=== PATIENT | female | born 1955 | race Caucasian/White ===

== ENCOUNTER 2017-09-29 21:52 | Emergency (ER) | payer OTHER ==
[~2017-09-29] VITALS: Ht 162.6 cm; Wt 68.0 kg
[~2017-09-29 21:52] MED LIST: ORE25 PO
[2017-09-29 21:55] VITALS: BP 177/88
[2017-09-29 22:02] VITALS: BP 177/88
--- NOTE | 2017-09-29 22:02 | NUR ---
TO CASTRO, A/W BED, EKG NSR, VSS ERMD NOTED
--- NOTE | 2017-09-29 23:30 | NUR ---
PATIENT LEFT WITHOUT BEING SEEN BY DR. BROWN. NO FURTHER CARE PROVIDED FOR PATIENT.
== END 2017-09-29 23:30 | disposition left against medical advice (07) ==
LOC: MED 21:52
DX: R07.9 Chest pain, unspecified (principal); Z53.21 Procedure and treatment not carried out due to patient leaving prior to being seen by health care provider
CPT/HCPCS: 71045; 93005; 99281